=== PATIENT | male | born 1995 | race Hispanic/Latino ===

== ENCOUNTER 2021-12-06 14:51 | Emergency (ER) | payer OTHER ==
[~2021-12-06] VITALS: Ht 170.2 cm; Wt 140.6 kg
[2021-12-06 15:28] LABS: BASOPHILS % (AUTO) 0.2 % (0.0-5.0); EOSINOPHILS % (AUTO) 1.4 % (0.0-8.0); HEMATOCRIT 44.2 % (42-54); MEAN CORPUSCULAR HEMOGLOBIN 29.1 pg (27.0-33.0); MONOCYTES % (AUTO) 7.4 % (3.0-13.0); NEUTROPHILS % (AUTO) 80.7 % (40.0-77.0); PLATELET COUNT (AUTO) 288 K/uL (130-400); RED BLOOD CELL COUNT(AUTO) 5.02 MIL/uL (4.50-6.20); RED CELL DISTRIBUTION WIDTH 12.8 % (11.0-15.5); WHITE BLOOD COUNT (AUTO) 14.5 K/uL (4.8-10.8)
[2021-12-06 15:38] LABS: CREATININE 0.8 mg/dL (0.5-1.5); POTASSIUM 3.9 mmol/L (3.5-5.1)
[2021-12-06 15:43] LABS: ALBUMIN 4.3 g/dL (3.5-5.0); BILIRUBIN,TOTAL 0.5 mg/dL (0.2-1.0); TOTAL PROTEIN, SERUM 8.1 g/dL (6.0-8.3)
[2021-12-06] MEDS ORDERED: KETOROLAC 15MG/ML VIAL (15MG/ML) ONE (15:47)
[2021-12-06] MEDS ORDERED: DiphenhydrAMINE HCL 50 MG/ML VIAL ONE (15:47)
[2021-12-06] MEDS ORDERED: METOCLOPRAMIDE 10 MG/2 ML VIAL ONE (15:47)
[2021-12-06] MEDS ORDERED: DiphenhydrAMINE HCL 50 MG/ML VIAL IV ONE (16:00)
[2021-12-06] MEDS ORDERED: METOCLOPRAMIDE 10 MG/2 ML VIAL IVP ONE (16:00)
[2021-12-06] MEDS ORDERED: KETOROLAC 15MG/ML VIAL (15MG/ML) IV ONE (16:00)
[2021-12-06] MEDS ORDERED: 0.9%NACL 1000ML 1,000 ML IV ONE (16:00)
[2021-12-06] MEDS ORDERED: FLUT16H NS (17:36)
[2021-12-06] MEDS ORDERED: CETI10TA57 PO (17:36)
[2021-12-06 17:59] VITALS: BP 107/60
== END 2021-12-06 17:55 | disposition home or self-care (01) ==
LOC: EDH 14:51
DX: J32.0 Chronic maxillary sinusitis (principal); Z20.822 Contact with and (suspected) exposure to COVID-19
CPT/HCPCS: 36415; 70450; 80053; 85025; 87635; 96361; 96374; 96375; 99284; C9803; J1200; J1885; J2765; J7030

== ENCOUNTER 2025-02-06 04:49 | Emergency (ER) | payer SELFPAY ==
[~2025-02-06] VITALS: Ht 170.2 cm; Wt 150.4 kg
[~2025-02-06 04:49] MED LIST: CETI10TA57 PO; FLUT16H NS
--- NOTE | 2025-02-06 04:53 | NUR ---
UA CUP PROVIDED
--- NOTE | 2025-02-06 05:00 | NUR ---
PATIENT VERBALLY CONSENTED FOR VOLUNTARY BLOOD DRAW
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
[2025-02-06 05:25] VITALS: BP 129/87; PULSE 90; RESP 18; TEMP 97.6; O2SAT 97
== END 2025-02-06 05:30 ==
LOC: EEVIPCON 04:49 → EDH 04:49
CPT/HCPCS: 99283